=== PATIENT | male | born 1955 | race American Indian/Alaskan Native ===

== ENCOUNTER 2017-02-09 08:16 | Emergency (ER) | payer MEDICARE ==
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
[2017-02-09 09:09] LABS: Hematocrit 37.6 % (35.5-45.6); Hemoglobin 11.8 gm/dl (11.8-15.2); Mean Corpuscular HGB Conc 32 % (32-34); Mean Corpuscular Hemoglobin 27 pg (28-32); Mean Corpuscular Volume 87 fl (84-94); Red Blood Count 4.32 M/mm3 (3.65-5.03); Red Cell Distribution Width 14.4 % (13.2-15.2)
[2017-02-09] MEDS ORDERED: NACL 0.9% 1000 ML 1,000 ML IV ONE (09:19)
[2017-02-09 09:27] LABS: BUN/Creatinine Ratio 27; Blood Urea Nitrogen 16 mg/dL (9-20); Carbon Dioxide 31 mmol/L (22-30); Chloride 99.8 mmol/L (98-107); Creatine Kinase 522 units/L (55-170); Glucose 90 mg/dL (75-100); Sodium 140 mmol/L (137-145)
[2017-02-09 09:46] LABS: Platelet Count 190 K/mm3 (140-440)
[2017-02-09 10:08] LABS: Anion Gap 14 mmol/L; Potassium 5.1 mmol/L (3.6-5.0)
--- NOTE | 2017-02-09 10:22 | XRay Report ---
XRAY LEFT FOREARM TWO VIEWS : 02/09/17 08:16:00 CLINICAL: Pain. FINDINGS: Normal bones, joints and soft tissues. No fracture or dislocation. IMPRESSION: Normal.
--- NOTE | 2017-02-09 10:24 | XRay Report ---
XRAY LEFT HUMERUS TWO VIEWS: 02/09/17 08:50:00 CLINICAL: Trauma and pain. FINDINGS: A comminuted transverse displaced fracture of the midportion of the humerus with lateral angulation and overlap at the fracture. No callus. A free fragment of bone is identified in the medial soft tissues. Soft tissue swelling but no air or foreign body. IMPRESSION: Acute traumatic displaced closed comminuted fracture of the mid left humerus.
[2017-02-09] MEDS ORDERED: SUBLIMAZE IV ONE ×2 (11:06→12:00)
[2017-02-09 12:32] VITALS: BP 102/60
== END 2017-02-09 12:00 | disposition left against medical advice (07) ==
LOC: ED 08:16
DX: S42.392A Other fracture of shaft of left humerus, initial encounter for closed fracture (principal); F20.0 Paranoid schizophrenia; F17.200 Nicotine dependence, unspecified, uncomplicated; Z88.8 Allergy status to other drugs, medicaments and biological substances; V49.9XXA Car occupant (driver) (passenger) injured in unspecified traffic accident, initial encounter; Y93.89 Activity, other specified; Y92.89 Other specified places as the place of occurrence of the external cause; Y99.8 Other external cause status
CPT/HCPCS: 36415; 80048; 82550; 85027

== ENCOUNTER 2017-02-16 10:35 | Inpatient (IN) | payer MEDICARE ==
--- NOTE | 2017-02-16 12:32 | Emergency Department Report ---
Chief Complaint: Extremity Problem,Nontraumatic Stated Complaint: LEFT ARM PAIN Time Seen by Provider: 02/16/17 12:31 - HPI History of Present Illness: Patient here reports that he is having in left arm pain. He was seen in ED last and he left AMA. Status post left humerus fracture with splinting and was referred to orthopedic and he did not follow up with orthopedic. Patient with right upper extremity swelling from arm to his hand. Capillary refill to fingers of left hand is greater than 3 seconds. Temperature to left hand is cool comparing to temperature on right hand. He has a OCL splint that is not intact and need to be resplinted. Patient sustained to the left upper extremities 10 out of 10 to his forearm and arm. He said he feels achy. - ROS Review of Systems: All systems are negative unless stated in HPI above - Exam Vital Signs: Vital Signs 02/16/17 11:02 Temperature 98.7 F Pulse Rate 63 Respiratory 18 Rate Blood Pressure 146/74 O2 Sat by Pulse 98 Oximetry Physical Exam: Gen.: This is a 61-year-old male that is frail looking. Extremity: Patient with splint to left upper extremity. Left hand cool to touch with capillary refill greater than 3 seconds. Patient able to move fingers to left hand. Left upper extremity with swelling, difference in color to left upper extremity when compared to right upper extremity. Tender to palpate to left arm. Patient with 2+ pulses radial and ulnar. . MSE screening note: Focused history and physical exam performed. Due to findings the following was ordered: ED Medical Decision Making - Medical Decision Making MDM: Patient screened by provider in triage area. Appropriate protocol initiated and patient to be seen in main ED by ED Disposition for MSE Condition: Stable Referrals: PRIMARY CARE, [Primary Care Provider] - 3-5 Days
[2017-02-16] MEDS ORDERED: GEODON PO ONE (13:03)
[2017-02-16] MEDS ORDERED: NORCO 7.5/325 PO ONE (13:03)
--- NOTE | 2017-02-16 13:57 | XRay Report ---
Chest 2 views. History: Cough. Findings: The heart and pulmonary vessels are normal. The lungs are clear. No pleural fluid is seen. Impression: Normal chest.
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
--- NOTE | 2017-02-16 13:59 | XRay Report ---
LEFT HAND: History: Swelling and pain. The bony architecture is intact. Bony alignment is normal. No soft tissue abnormalities are seen. The joint spaces appear preserved. IMPRESSION: Normal left hand.
[2017-02-16] MEDS ORDERED: ZOFRAN IV PRN (14:00)
[2017-02-16] MEDS ORDERED: PERCOCET 5/325 PO PRN (14:00)
[2017-02-16] MEDS ORDERED: PROVENTIL IH PRN (14:00)
[2017-02-16] MEDS ORDERED: MILK OF MAGNESIA PO PRN (14:00)
[2017-02-16] MEDS ORDERED: TYLENOL PO PRN (14:00)
[2017-02-16] MEDS ORDERED: DULCOLAX PR PRN (14:00)
[2017-02-16 14:11] LABS: Basophils % (Auto) 0.5 % (0.0-1.8); Eosinophils % (Auto) 1.9 % (0.0-4.3); Hematocrit 33.7 % (35.5-45.6); Hemoglobin 10.8 gm/dl (11.8-15.2); Mean Corpuscular HGB Conc 32 % (32-34); Mean Corpuscular Hemoglobin 28 pg (28-32); Mean Corpuscular Volume 88 fl (84-94); Platelet Count 250 K/mm3 (140-440); Red Blood Count 3.84 M/mm3 (3.65-5.03); Red Cell Distribution Width 14.8 % (13.2-15.2); White Blood Count 9.9 K/mm3 (4.5-11.0)
[2017-02-16 14:20] LABS: INR 0.93 (0.87-1.13)
[2017-02-16 14:21] LABS: Partial Thromboplastin Time 31.6 Sec. (24.2-36.6)
[2017-02-16 14:24] LABS: Alanine Aminotransferase 25 units/L (7-56); Albumin 3.9 g/dL (3.9-5); Albumin/Globulin Ratio 1.5 %; Alkaline Phosphatase 88 units/L (35-129); Anion Gap 16 mmol/L; BUN/Creatinine Ratio 23; Blood Urea Nitrogen 14 mg/dL (9-20); Calcium 8.7 mg/dL (8.4-10.2); Carbon Dioxide 29 mmol/L (22-30); Chloride 100.8 mmol/L (98-107); Glucose 66 mg/dL (75-100); Potassium 4.3 mmol/L (3.6-5.0); Sodium 141 mmol/L (137-145); Total Protein 6.5 g/dL (6.3-8.2)
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
[2017-02-16] MEDS: NACL 0.45% 1000 ML 1,000 ML IV SCH (17:58)
[2017-02-16] MEDS: BABY ASPIRIN PO SCH (18:01)
[2017-02-17] MEDS: NACL 0.45% 1000 ML 1,000 ML IV SCH ×2 (02:28→12:38)
[2017-02-17] MEDS: MORPHINE IV PRN ×2 (04:10→08:33)
[2017-02-17] MEDS: BABY ASPIRIN PO SCH (12:38)
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
[2017-02-18] MEDS ORDERED: NEOSPORIN GU IR ONE
[2017-02-18] MEDS: MORPHINE IV PRN ×2 (06:38→17:10)
--- NOTE | 2017-02-18 10:04 | Anesthesia Consultation ---
Anesthesia Consult and Med Hx Date of service: 02/18/17 - Airway ROM Head & Neck: Adequate Mental/Hyoid Distance: Adequate - Pre-Operative Health Status ASA Pre-Surgery Classification: ASA3 Proposed Anesthetic Plan: General - Pulmonary Hx Smoking: Yes (everyday smoker) - Cardiovascular System Hx Hypertension: Yes - Central Nervous System Hx Psychiatric Problems: Yes (paranoid schizophrenia, non compliant with meds) - Additional Comments Anesthesia Medical History Comments: consent signed by pt's brother
--- NOTE | 2017-02-18 10:05 | Anesthesia Day of Surgery ---
Anesthesia Day of Surgery - Day of Surgery Patient Examined: Yes Patient H&P Reviewed: Yes Patient is NPO: Yes
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
[2017-02-18] MEDS ORDERED: ANCEF/STERILE WATER 2 GM/20 ML IV NR (13:25)
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
[2017-02-18] MEDS ORDERED: DIPRIVAN 10 MG/ML IV ONE (13:31)
[2017-02-18] MEDS ORDERED: DILAUDID ONE ×2 (13:32→18:32)
[2017-02-18] MEDS ORDERED: XYLOCAINE MPF 2% ONE (13:32)
[2017-02-18] MEDS ORDERED: VERSED IV NR (13:38)
[2017-02-18] MEDS ORDERED: NACL 0.9% 1000 ML 1,000 ML IV SCH (14:00)
[2017-02-18] MEDS ORDERED: PEPCID IV NR (14:00)
[2017-02-18] MEDS ORDERED: ePHEDrine SULFATE ONE ×2 (14:28→15:49)
[2017-02-18] MEDS ORDERED: NACL 0.9% IR ONE ×2 (14:47)
[2017-02-18] MEDS ORDERED: NACL 0.9% 1000 ML 0 ML ONE (14:55)
[2017-02-18] MEDS ORDERED: ZOFRAN ONE ×2 (15:36→18:07)
[2017-02-18] MEDS ORDERED: NEO SYNEPHRINE/NS Syringe(OR USE) IV ONE (16:00)
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
[2017-02-18] MEDS ORDERED: SODIUM CHLORIDE FLUSH SYRINGE 10 ML IV NR (17:00)
--- NOTE | 2017-02-18 17:04 | Post Anesthesia Evaluation ---
- Post Anesthesia Evaluation Patient Participated: Yes Airway Patent: Yes Stable Respiratory Function: Yes Nausea/Vomiting: No Temp > 96.8F: Yes Pain Manageable: Yes Adequeate Hydration: Yes Anesthesia Complications: No
[2017-02-18] MEDS ORDERED: ANCEF ONE (17:45)
[2017-02-18] MEDS ORDERED: NACL 0.9% 1000 ML 1,000 ML ONE (18:00)
[2017-02-18] MEDS ORDERED: DECADRON ONE (18:07)
[2017-02-18] MEDS: BABY ASPIRIN PO SCH (18:10)
--- NOTE | 2017-02-19 07:35 | XRay Report ---
LEFT HUMERUS, 2 VIEWS History: Left humerus fracture, intraoperative films. Findings: 4 fluoroscopic images of the left humerus were obtained during surgery. Images demonstrate internal fixation of a left humeral shaft fracture with intramedullary arnaud and screws. Alignment is anatomic. There is normal articulation at the left shoulder. Please correlate with the procedural report by Dr. Miller as needed. Impression: Open reduction and internal fixation of a left humeral fracture.
[2017-02-19 07:53] VITALS: BP 123/74
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
--- NOTE | 2017-02-19 13:38 | Progress Note ---
Subjective - Reason for Consult Consult date: 02/19/17 Reason for consult: Psychiatry Follow-up - Chief Complaint Chief complaint: "I'm leaving today" 61 y.o. AA male patient presenting to [facility] for left arm pain. He was seen here on 02/09/2017 and found to have a displaced fracture of the midshaft of the humerus. He was noncompliant with his follow-up. Today patient is cooperative during the assessment. The patient acknowledged having a procedure yesterday ( Closed reduction and insertion of intramedullary nail left humeral shaft). He stated that his arm was sore, but overall "okay." He stated he will be discharged today. Per collateral information from his sister Diego Aguirre, she stated that her brother has hx of Bipolar DO. She stated that he used to receive a monthly injection, but cannot ID the name of the medication. Patient stated that he ate his breakfast earlier this morning. He denies SI/HI's and AVH 's. Mental Status Exam - Vital signs Last Vital Signs Temp 99.1 F 02/19/17 07:49 Pulse 80 02/19/17 07:49 Resp 16 02/19/17 07:49 BP 123/74 02/19/17 07:49 Pulse Ox 98 02/19/17 07:49 - Exam Narrative exam: MSE: Appearance: cooperative Behavior: regular eye contact Speech: regular rate and tone Mood: "okay" Affect: congruent to mood Thought Process: linear Thought Content: denies SI/HI's and AVH's Motor Activity: sitting up in bed Cognition: A/O x 3 Insight: fair Judgment: fair Assessment and Plan Impression: Per collateral information, patient has a hx of Bipolar DO. Today patient is cooperative during the assessment. Recommendation/Plan: The patient acknowledged receiving a monthly injection, so he was referred to [facility] for outpatient psy services.
== END 2017-02-19 16:12 | disposition home health service (06) | DRG 493 ==
LOC: ED 10:35 → 3A 14:00
PROVIDERS: ADMIT Internal Medicine; ATTEND Internal Medicine
PROC: 0PSG36Z Reposition Left Humeral Shaft with Intramedullary Internal Fixation Device, Percutaneous Approach (ICD-10-PCS; principal; 2017-02-18)
DX: S42.322A Displaced transverse fracture of shaft of humerus, left arm, initial encounter for closed fracture (principal); F20.1 Disorganized schizophrenia; E16.2 Hypoglycemia, unspecified; I10 Essential (primary) hypertension; F17.210 Nicotine dependence, cigarettes, uncomplicated; D64.9 Anemia, unspecified; F31.9 Bipolar disorder, unspecified; Z88.8 Allergy status to other drugs, medicaments and biological substances; V43.92XA Unspecified car occupant injured in collision with other type car in traffic accident, initial encounter; Y93.89 Activity, other specified; Y92.89 Other specified places as the place of occurrence of the external cause; Y99.8 Other external cause status
CPT/HCPCS: 36415; 71020; 80053; 82962; 85025; 85610; 85730; 86850; 86900; 86901; 99406; C1713; J0690; J1100; J1170; J2250; J2270; J2370; J2405; J2704; J7030

== ENCOUNTER 2017-02-23 14:48 | Emergency (ER) | payer MEDICARE ==
[2017-02-23 15:05] VITALS: BP 125/72
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
[2017-02-23 15:50] LABS: Eosinophils % (Auto) 1.7 % (0.0-4.3); Hematocrit 27.9 % (35.5-45.6); Hemoglobin 8.9 gm/dl (11.8-15.2); Mean Corpuscular HGB Conc 32 % (32-34); Mean Corpuscular Hemoglobin 28 pg (28-32); Mean Corpuscular Volume 86 fl (84-94); Platelet Count 244 K/mm3 (140-440); Red Blood Count 3.22 M/mm3 (3.65-5.03); Red Cell Distribution Width 14.4 % (13.2-15.2); White Blood Count 10.6 K/mm3 (4.5-11.0)
[2017-02-23 15:58] LABS: Anion Gap 17 mmol/L; BUN/Creatinine Ratio 21; Blood Urea Nitrogen 15 mg/dL (9-20); Calcium 8.2 mg/dL (8.4-10.2); Carbon Dioxide 27 mmol/L (22-30); Chloride 99.7 mmol/L (98-107); Glucose 112 mg/dL (75-100); Sodium 140 mmol/L (137-145)
== END 2017-02-23 16:00 | disposition left against medical advice (07) ==
LOC: ED 14:48
DX: M79.622 Pain in left upper arm (principal); M79.89 Other specified soft tissue disorders; Z53.21 Procedure and treatment not carried out due to patient leaving prior to being seen by health care provider
CPT/HCPCS: 36415; 80048; 85025

== ENCOUNTER 2017-05-07 18:01 | Emergency (ER) | payer MEDICARE ==
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
[2017-05-07] MEDS ORDERED: MOTRIN PO ONE ×2 (19:44→19:45)
[2017-05-07 20:05] VITALS: BP 110/76
== END 2017-05-07 20:03 | disposition home or self-care (01) ==
LOC: ED 18:01
DX: T18.4XXA Foreign body in colon, initial encounter (principal); I10 Essential (primary) hypertension; F20.9 Schizophrenia, unspecified; F17.200 Nicotine dependence, unspecified, uncomplicated; F12.10 Cannabis abuse, uncomplicated; Y92.89 Other specified places as the place of occurrence of the external cause
CPT/HCPCS: 99282

== ENCOUNTER 2020-01-02 13:50 | Emergency (ER) | payer MEDICARE ==
--- NOTE | 2020-01-02 14:20 | Event Note ---
ED Screening Note Date of service: 01/02/20 Time: 14:19 ED Screening Note: c/o right hand pain and swelling x 3 days states fell onto hand This initial assessment/diagnostic orders/clinical plan/treatment(s) is/are subject to change based on patients health status, clinical progression and re- assessment by fellow clinical providers in the ED. Further treatment and workup at subsequent clinical providers discretion. Patient/guardian urged not to elope from the ED as their condition may be serious if not clinically assessed and managed. Initial orders include: xr
[2020-01-02 14:23] VITALS: BP 101/67
--- NOTE | 2020-01-02 14:59 | XRay Report ---
RIGHT HAND 3 VIEWS INDICATION: 1st MC/tumb pain and swelling after fall. COMPARISON: None. IMPRESSION: There appears to be mild anterior subluxation at the first metatarsophalangeal joint. No complete dislocation. The remaining joint spaces are normal in alignment. No significant degenerativ e changes or erosive joint pathology. No acute fracture or bone lesion. Chronic healed fracture is s uspected. The soft tissues are unremarkable. Signer Name: John Jose Jr, MD Signed: 01/02/2020 2:54 PM Workstation Name: [id number]
== END 2020-01-02 19:43 | disposition left against medical advice (07) ==
LOC: ED 13:50
DX: M79.641 Pain in right hand (principal); Z53.21 Procedure and treatment not carried out due to patient leaving prior to being seen by health care provider